=== PATIENT | female | born 1970 | race Caucasian/White ===

== ENCOUNTER → 2016-08-19 | Outpatient (CLI) | payer BC | LOC: LAB 09:57 | DX: N76.0 Acute vaginitis (principal); N39.0 Urinary tract infection, site not specified; B96.20 Unspecified Escherichia coli [E. coli] as the cause of diseases classified elsewhere ==

== ENCOUNTER → 2016-09-24 | Outpatient (CLI) | payer BC | LOC: LAB 08:18 | DX: E78.5 Hyperlipidemia, unspecified (principal) ==

== ENCOUNTER → 2017-06-09 | Outpatient (CLI) | payer BC ==
[2012-01-20 11:56] VITALS: BP 117/73
== END ==
LOC: MAMMO 14:22
DX: Z12.31 Encounter for screening mammogram for malignant neoplasm of breast (principal)
CPT/HCPCS: G0202